=== PATIENT | male | born 1955 | race Two or more races ===

== ENCOUNTER 2025-02-04 19:15 | Emergency (ER) | payer MEDICARE, MEDICAID, SELFPAY ==
[2025-02-04 19:16] VITALS: BMI 26.4
[2025-02-04 19:43] VITALS: BP 162/90; PULSE 84; RESP 18; TEMP 37.1; O2SAT 98
--- NOTE | 2025-02-04 19:47 | PD.EDEYE ---
ED Eye Problem RME/HPI General Chief complaint: Eye Problems Stated complaint: LEFT EYE PAIN Time Seen by Provider: 02/04/25 19:46 Arrival date/time: 02/04/25 19:15 RME / HPI RME / HPI Narrative: Dr. 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 Notes left retro-orbital headache, nausea, and several bouts of emesis. No fever or chills. No flu-like symptoms. Patient reports compliance with his [place] medications including brimonidine and timolol. PSH is orthopedic related. No history of alcoholism or illicit drug use. Related Data Home Medications ?Medication ?Instructions ?Recorded ?Confirmed latanoprost 0.005 % eye drops 0.005 drp ophthalmic (eye) QDAY 08/28/23 08/28/23 Previous Rx's ?Medication ?Instructions ?Recorded ibuprofen 600 mg tablet (IBU) 600 mg PO TID PRN fever or pain 06/15/17 #30 tabs atropine sulfate (PF) 1 % eye 1 drp ophthalmic (eye) BID #10 ea 02/04/25 drops in a dropperette fluorometholone 0.25 % eye 2 drp ophthalmic (eye) Q6H 7 days 02/04/25 drops,suspension (FML Forte) #10 mL ganciclovir 0.15 % eye gel (Zirgan) 1 drp ophthalmic (eye) Q6HR 7 days 02/04/25 #5 grams hydrocodone 5 mg-acetaminophen 325 1 tab PO Q8H PRN pain #20 tabs 02/04/25 mg tablet Allergies Allergy/AdvReac Type Severity Reaction Status Date / Time No Known Allergies Allergy Verified 08/28/23 21:14 Review of Systems Review of Systems Systems Reviewed: All systems reviewed, normal except as documented Past Medical History Past Medical History CARDIAC: Negative Congestive Heart Failure RESPIRATORY: Negative Chronic Obstructive Pulmonary Disease (COPD) GENITOURINARY: Negative Renal Disease ENDOCRINE: Negative Diabetes Mellitus Type 1 or Diabetes Mellitus Type 2 HEMATOLOGIC: Negative Blood Disorders Social History SMOKING STATUS: Current every day smoker ED Exam Narrative Physical exam: GENERAL APPEARANCE: alert and oriented x 4, well-developed, well-nourished, complaining of left ocular pain, in moderate distress VITALS: All vitals were reviewed and the pulse ox is 98% on room air, which is normal according to my interpretation. HEENT: Normocephalic, atraumatic; near complete opacification of the left cornea and anterior chamber, ?layering in the lower anterior chamber, pupil is reactive, EOMI, cannot discern shadows when using the left eye; right eye demonstrates mild conjunctival injection with slight opacification of the cornea, anterior chamber is clear, EOMI, PERRLA; mucous membranes pink, moist; oropharynx clear NECK: Supple LUNGS: CTABL; no wheezes, no rales, no rhonchi HEART: Regular rate, regular rhythm; normal S1, S2; no murmurs ABDOMEN: non distended; normal BS; soft, no tenderness EXTREMITIES: atraumatic; no edema NEUROLOGIC: awake; alert and oriented x4; cranial nerves II-XII grossly intact; no focal sensory or motor deficits PSYCHIATRIC: appropriate mood and affect SKIN: warm, dry, normal color; no rashes Course Quality Measures none Orders Category Date Time Status Saline [Insert IV] NOW Care 02/04/25 20:05 Active CBC [CBC] Stat Lab 02/04/25 20:15 Completed CMP [Comprehensive Metabolic Panel] Stat Lab 02/04/25 20:15 Completed Urinalysis, C/S if Indicated Stat Lab 02/04/25 20:05 Ordered Fluorescein Sodium [Bio-Aliza] Med 02/04/25 20:04 Discontinued 1 mg BOTH EYES X1 ONE Morphine* Inj Med 02/04/25 19:55 Discontinued 4 mg IVP X1 ONE Prochlorperazine Inj [Compazine Inj] Med 02/04/25 19:54 Discontinued 5 mg IV X1 ONE Proparacaine Op Janae 0.5% [Alcaine Op Janae 0.5%] Med 02/04/25 19:54 Discontinued See Dose Instructions BOTH EYES X1 ONE Vital Signs Vital signs: Vital Signs Temperature 98.7 F 02/04/25 19:43 Pulse Rate 84 02/04/25 19:43 Respiratory Rate 18 02/04/25 19:43 Blood Pressure 162/90 H 02/04/25 19:43 Pulse Oximetry (%) 98 02/04/25 19:43 Oxygen Delivery Method Room Air 02/04/25 19:43 Eye MDM Narrative MDM Narrative:: Scribe Attestation: 02/04/25 Jennifer Muhammad am scribing for and in the presence of Dr. Campos. 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 Notes left retro-orbital headache, nausea, and several bouts of emesis. No fever or chills. Please see PE findings. Patient underwent tonometric testing and pressure were within normal limits. Fluorescein staining demonstrated a cluster of dendrites involving the visual axis on the left with intense opacification and coalescence with corneal edema. Findings communicated to opthalmologist, who suggests topical steroids, antiviral, and cycloplegic. Will institute noted therapy and close follow-up on Friday. Cool compresses, HOB elevation, and narcotic analgesics will be prescribed. Patient data External records reviewed:: [facility] previous records (Per chart review, patient was seen here on 08/28/23 for acute left eye pain.) Clinical information provided by:: patient Social determinants that could affect healthcare access:: none Patient has the following chronic illnesses:: glaucoma How is presenting disease/condition affected by chronic disease/condition?: exacerbated by Evaluation data The following diagnostics were reviewed and interpreted by me:: lab results Lab and/or radiology exams considered but not ordered:: none Interpretation Summary: See MDM. Medications / Prescriptions Medications or Prescriptions considered but not ordered:: none Medication administrations:: Medication Administration History Discontinued Medications Fluorescein Sodium (Fluorescein Sod 1 Mg Strp) 1 mg BOTH EYES X1 ONE Stop: 02/04/25 20:05 Last Admin: 02/04/25 20:22 Dose: 1 mg Documented By: KARELY Comments: admin by provider Morphine Sulfate (Morphine Sulf Inj 4 Mg/Ml Vial) 4 mg IVP X1 ONE Stop: 02/04/25 19:56 Last Admin: 02/04/25 20:21 Dose: 4 mg Documented By: KARELY Prochlorperazine Edisylate (Prochlorperazine Inj 5 Mg/Ml Vial 2 Ml) 5 mg IV X1 ONE; Protocol Stop: 02/04/25 19:55 Last Admin: 02/04/25 20:21 Dose: 5 mg Documented By: KARELY Proparacaine HCl (Proparacaine Op Janae 0.5% 15 Ml Btl) 0 drop BOTH EYES X1 ONE Stop: 02/04/25 19:55 Last Admin: 02/04/25 20:22 Dose: 225 drop Documented By: KARELY Comments: admin by provider see above Consultations Consultation(s) initiated? (list below): No Diagnosis Eye Problem Differential Diagnosis: corneal abrasion, glaucoma and other (foreign body, viral conjunctivitis) Most likely diagnosis given after review of the tests above:: see clinical impression below Admission Indicated Admission indicated?: not indicated Admission Request Was there a request for admission?: No Disposition Plan Disposition Plan: Discharge Discharge Attestation Discharge Attestation: The patient and all family members were given an opportunity to ask questions and understood the discharge instructions. Discharge instructions specifically effects, indications for sooner follow up or return to the emergency department, and the expected course of current diagnosis. Patient condition: Stable Discharge Plan Plan Patient Disposition: HOME (Self Care) Discharge Disposition comment: Stable Prescriptions/Referrals Prescriptions/Med Rec: New FML Forte 0.25 % drops,suspension 2 drp ophthalmic (eye) Q6H 7 Days Qty: 10 0RF Rx Instructions: please apply to both eyes every 6 hrs atropine sulfate (PF) 1 % dropperette 1 drp ophthalmic (eye) BID Qty: 10 1RF Zirgan 0.15 % gel 1 drp ophthalmic (eye) Q6HR 7 Days Qty: 5 0RF Rx Instructions: while awake; give 5 doses in 24 hours hydrocodone-acetaminophen 5-325 mg tablet 1 tab PO Q8H MDD 3 tab PRN (Reason: pain) Qty: 20 0RF No Action ibuprofen [IBU] 600 mg tablet 600 mg PO TID PRN (Reason: fever or pain) Qty: 30 0RF latanoprost 0.005 % drops 0.005 drp OPHTHALMIC (EYE) QDAY Patient Comments: place 1 drop into both eyes at bedtime Referrals: Holly Santizo [Referring Provider] - 02/06/25 9:00 am Referral Note: Patient with viral infection began on cycloplegic, topical steroids and antivirals scheduled for Friday a.m. visit please evaluate. Problem List Clinical Impression: Herpes simplex, ocular Impression comment: herpetic viral conjunctivitis Patient/Caregiver Discharge Instructions Discharge Activity: activity as tolerated Education Materials: ED Conjunctivitis, Viral Additional Instructions: Cool compresses maintain head of bed elevation, medications as directed follow-up with semiconductor equipment technician on Friday a.m. and return if worsening. Print Language: [place] Stand Alone Forms: Jenni Award Info., Patient Portal Info Letter
[2025-02-04] MEDS: PROCHLORPERAZINE INJ 5 MG/ML VIAL 2 ML IV (20:21)
[2025-02-04] MEDS: MORPHINE SULF INJ 4 MG/ML VIAL IVP (20:21)
[2025-02-04] MEDS: FLUORESCEIN SOD 1 MG STRP BOTH EYES (20:22)
[2025-02-04] MEDS: PROPARACAINE OP SOL 0.5% 15 ML BTL BOTH EYES (20:22)
[2025-02-04 20:32] LABS: Basophils # (Auto) 0.1 Thou/mm3 (0.0-0.2); Basophils % (Auto) 1 % (0-2.5); Eosinophils # (Auto) 0.2 Thou/mm3 (0.0-0.5); Eosinophils % (Auto) 2 % (0-10); Hematocrit 44.0 % (41.0-53.0); Hemoglobin 14.8 g/dL (13.5-16.0); Immature Granulocytes Auto 0.04 Thou/mm3 (0.00-0.00); Lymphocytes # (Auto) 3.2 Thou/mm3 (1.0-4.8); Lymphocytes % (Auto) 31 % (10-50); Mean Corpuscular HGB Conc 33.6 g/dl (31.0-37.0); Mean Corpuscular Hemoglobin 30.1 pg (25.0-35.0); Mean Corpuscular Volume 90 fL (80-100); Monocytes # (Auto) 0.7 Thou/mm3 (0.0-0.8); Monocytes % (Auto) 7 % (0-12); Neutrophils # (Auto) 6.2 Thou/mm3 (1.8-7.7); Neutrophils % (Auto) 59 % (37-80); Nucleated Red Blood Cell # 0.00 Thou/mm3 (0.00-0.00); Nucleated Red Blood Cell % 0 /100 WBC (0); Platelet Count 279 Thou/mm3 (140-440); RDW Standard Deviation 45.8 fL (35.1-43.9); Red Blood Count 4.91 Miln/mm3 (4.50-5.90); White Blood Count 10.5 Thou/mm3 (3.8-10.6)
[2025-02-04 20:43] LABS: Alanine Aminotransferase 13 U/L (10-49); Albumin, Serum 4.6 gm/dL (3.4-4.8); Albumin/Globulin Ratio 1.5 (1.2-2.2); Alkaline Phosphatase 83 U/L (46-116); Anion Gap 5 (7-16); Aspartate Amino Transferase 19 U/L (0-34); BUN/Creatinine Ratio 9 Ratio (12-20); Bilirubin,Total 0.3 mg/dL (0.3-1.2); Blood Urea Nitrogen 9 mg/dL (9-23); Calcium 10.1 mg/dL (8.3-10.6); Calcium (Corrected) 10.1 mg/dL (8.5-10.1); Carbon Dioxide 28.4 mMol/L (20.0-31.0); Chloride 108 mMol/L (98-107); Creatinine (Component) 1.0 mg/dL (0.6-1.3); Estimated Creatinine Clearance 57.6 mL/min (>60); Globulin 3.1 gm/dL (2.3-3.5); Glucose 98 mg/dL (74-106); Osmolality,Calculated 279 (275-295); Potassium 3.8 mMol/L (3.4-5.1); Sodium 141 mMol/L (136-145); Total Protein 7.7 gm/dL (5.7-8.2); eGFR > 60 See Note
[2025-02-04 21:37] VITALS: PULSE 90; RESP 18; O2SAT 98
== END 2025-02-04 21:38 | disposition home or self-care (01) ==
PROVIDERS: Emergency Provider Emergency Medicine; PCP Internal Medicine
DX: B00.50 Herpesviral ocular disease, unspecified (principal); H40.9 Unspecified glaucoma
CPT/HCPCS: 36415; 80053; 81001; 85025; 96374; 99283; J0780; J2270